=== PATIENT | male | born 1975 | race Caucasian/White ===

== ENCOUNTER 2022-08-29 17:36 | Emergency (ER) | payer OTHER, BC ==
[~2022-08-29] VITALS: Ht 188 cm; Wt 93.0 kg
[2022-08-29] MEDS ORDERED: ZYRTEC10 MG PO (17:53)
== END 2022-08-29 20:59 | disposition home or self-care (01) ==
LOC: ED 17:36
DX: H57.12 Ocular pain, left eye (principal); T65.91XA Toxic effect of unspecified substance, accidental (unintentional), initial encounter; Z88.8 Allergy status to other drugs, medicaments and biological substances; Z79.899 Other long term (current) drug therapy
CPT/HCPCS: 70450